=== PATIENT | female | born 1995 | race Caucasian/White ===

== ENCOUNTER 2022-03-12 09:47 | Day surgery (SDC) | payer BC, SELFPAY ==
[2022-03-12] VITALS (12 sets, daily range): BP systolic 109–124; BP diastolic 64–82; PULSE 86–121; RESP 12–20; TEMP 36.3–36.6; O2SAT 94–99; BMI 26.9
[2022-03-12] MEDS: OXYMETAZOLINE 0.05% NASAL SPRAY 2 SPRAY NOSTRIL-B (10:00)
[2022-03-12] MEDS: SODIUM CHLORIDE 0.9 % (FLUSH) 10 ML SYRINGE IVF (10:15)
[2022-03-12] MEDS: LACTATED RINGERS 1000 ML 1,000 ML 100 ML IV (10:15)
[2022-03-12] MEDS: COCAINE HCL 4 % 4 ML SOLUTION NOSTRIL-B (11:32)
[2022-03-12] MEDS: BUPIVACAINE 0.5 %/EPI 1:200K 30 ML INJECTION (11:32)
[2022-03-12] MEDS: MUPIROCIN 1 GM PACKET 1 APPLIC TOPICAL (11:51)
--- NOTE | 2022-03-12 12:02 | W.ANESCHARGE ---
Anesthesia Charges Start Date/Time Anesthesia Start Date: 03/12/22 Anesthesia Start Time: 11:21 Stop Date/Time Anesthesia Stop Date: 03/12/22 Anesthesia Stop Time: 12:04 Summary Emergency: No
[2022-03-12] MEDS: OXYCODONE 5 MG TABLET PO (12:54)
--- NOTE | 2022-03-12 13:01 | W.PM.ENTPROC ---
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 A right hemitransfixion incision was made left anterior and posterior tunnels were created. Vertical incision was made through the cartilage and a right posterior tunnel created. The posterior deflected portion of septal bone was resected a single piece was trimmed and returned to the intraseptal space. Septum was still off to the left side so a right anterior tunnel was created and this allowed the septum to be placed in the midline. The hemitransfixion was closed with 2 4-0 chromic sutures. A stab incision was made in the anterior head of the right inferior turbinate a tunnel created with a Sherine dissector. The brenda bone was outfractured and a conservative anterior submucous resection performed. Hemostasis was achieved with Coblation Wand which was also used on the inferior 10% of the turbinate. The posterior head of the right inferior turbinate had undergone polypoid degeneration was quite enlarged. This was ablated with the Coblation Wand. This procedure was repeated on the left side in identical fashion with the exception that there was no polypoid change of the posterior head the inferior turbinate. Remainder procedure was done with the available assistance of a 0 degree endoscope. The right middle turbinate brenda was incised along its lateral aspect in the Consul bone infractured. The turbinate was then crushed with the Ris[place] forceps. The left middle turbinate was simply crushed with the Oswaldo forceps. Silastic stents were secured with 3-0 nylon and a Merocel pack trim lengthwise and cold in Bactroban and placed in the middle meatus on each side. The patient procedure well was taken to recovery in satisfactory condition. Blood loss was less than 25 mL. There were no complications Surgeon: Kevin Peterson MD
== END 2022-03-12 13:42 | disposition home or self-care (01) ==
PROVIDERS: PCP Physician Assistant Medical; Visit Provider Otolaryngology
PROC: (CPT 31231; principal; 2022-03-12 11:00)
DX: J34.2 Deviated nasal septum (principal); J34.3 Hypertrophy of nasal turbinates; J34.89 Other specified disorders of nose and nasal sinuses; J33.8 Other polyp of sinus
CPT/HCPCS: 30140; 30520; 31240; 00160; A9270; J0330; J1100; J2250; J2405; J2704; J3010; J3490; J7120

== ENCOUNTER 2022-03-19 09:32 | Day surgery (SDC) | payer BC, SELFPAY ==
[2022-03-19] VITALS (17 sets, daily range): BP systolic 118–135; BP diastolic 70–88; PULSE 88–111; RESP 12–16; TEMP 36.6–37; O2SAT 93–99; BMI 27.2
[2022-03-19] MEDS: SODIUM CHLORIDE 0.9 % (FLUSH) 10 ML SYRINGE IVF (10:00)
--- NOTE | 2022-03-19 10:23 | SUR.PREOP ---
pt was here last tuesday for surgery. Covid last tuesday neg, UCG from last week neg. Pt reports not being sexually active since then. MDA okay with not doing covid test and UCG.
[2022-03-19] MEDS: LACTATED RINGERS 1000 ML 1,000 ML 100 ML IV (10:30)
[2022-03-19] MEDS: COCAINE HCL 4 % 4 ML SOLUTION NOSTRIL-B (10:56)
[2022-03-19] MEDS: BUPIVACAINE 0.5%/EPINEPHRINE 0.9 MG (30.9 ML) INJECTION (11:20)
[2022-03-19] MEDS: MUPIROCIN 1 GM PACKET 1 APPLIC TOPICAL (11:24)
--- NOTE | 2022-03-19 11:34 | W.ANESCHARGE ---
Anesthesia Charges Start Date/Time Anesthesia Start Date: 03/19/22 Anesthesia Start Time: 11:05 Stop Date/Time Anesthesia Stop Date: 03/19/22 Anesthesia Stop Time: 11:36 Summary Emergency: No
--- NOTE | 2022-03-19 11:51 | W.ANESCHARGE ---
Anesthesia Charges Start Date/Time Anesthesia Start Date: 03/19/22 Anesthesia Start Time: 11:05 Stop Date/Time Anesthesia Stop Date: 03/19/22 Anesthesia Stop Time: 11:36 Summary Emergency: No
[2022-03-19] MEDS: MEPERIDINE 25 MG/ML INJ 12.5 MG IVP (11:52)
[2022-03-19] MEDS: fentaNYL 100 MCG/2 ML inj 50 MCG IVP (12:05)
[2022-03-19] MEDS: OXYCODONE 5 MG TABLET PO (12:48)
--- NOTE | 2022-03-30 08:44 | W.PM.ENTPROC ---
Procedure Note Date of procedure: 03/30/22 Procedure: Preoperative diagnosis status post nasal septoplasty with septal hematoma Postoperative diagnosis same Procedure incision drainage septal hematoma Under general endotracheal anesthesia patient was prepped and draped in usual fashion. The right hemitransfixion incision was reopened. Small amount of clot was evacuated from the posterior septum and a large amount from the anterior septum. A left inferior 1 cm drainage incision was made. Stents were then placed and secured with 3-0 nylon on either side of the septum. A Merocel pack was term lengthwise and placed along the upper septum. The patient procedure well was taken recovery in satisfactory condition. There were no complications. Blood loss less than 10 mL Surgeon: Kevin Peterson MD
== END 2022-03-19 13:49 | disposition home or self-care (01) ==
PROVIDERS: PCP Physician Assistant Medical; Visit Provider Otolaryngology
PROC: (CPT 30520; principal; 2022-03-19 10:45)
DX: J95.860 Postprocedural hematoma of a respiratory system organ or structure following a respiratory system procedure (principal)
CPT/HCPCS: 30020; 160; A9270; J0330; J1100; J2175; J2250; J2405; J2704; J3010; J7120